=== PATIENT | female | born 2000 | race Caucasian/White ===

== ENCOUNTER 2021-02-13 21:06 | Emergency (ER) | payer OTHER | END 2021-02-14 02:10 | disposition left against medical advice (07) | LOC: ER1 21:06 | DX: Z53.21 Procedure and treatment not carried out due to patient leaving prior to being seen by health care provider (principal) ==

== ENCOUNTER 2021-04-07 09:18 | Emergency (ER) | payer OTHER ==
[2021-04-07 09:56] LABS: RED BLOOD COUNT 4.22 M/UL (4.00-5.10); WHITE BLOOD COUNT 9.8 K/UL (4.5-11.0)
[2021-04-07 10:18] LABS: BUN/CREATININE RATIO 17 (0-10)
[2021-04-07] MEDS ORDERED: OMNICEF 300 MG300 MG PO (10:19)
== END 2021-04-07 10:35 | disposition home or self-care (01) ==
LOC: ER1 09:18
PROVIDERS: Physician Assistant
DX: O23.41 Unspecified infection of urinary tract in pregnancy, first trimester (principal); Z3A.09 9 weeks gestation of pregnancy
CPT/HCPCS: 80053; 81001; 83690; 84702; 85025; 87086; 99284

== ENCOUNTER 2021-10-28 21:12 | Inpatient (IN) | payer OTHER ==
[~2021-10-28] VITALS: Ht 154.9 cm; Wt 89.8 kg
[~2021-10-28 21:12] MED LIST: OMNICEF 300 MG300 MG PO
[2021-10-28 23:06] LABS: HEMOGLOBIN 11.6 gm/dl (12.3-15.3); RED BLOOD COUNT 4.03 M/UL (4.00-5.10); WHITE BLOOD COUNT 15.1 K/UL (4.5-11.0)
[2021-10-29] MEDS ORDERED: PRENATAL VITAM1 EAC3 PO (03:53)
[2021-10-29] MEDS ORDERED: COLACE 100MG C100 MG PO (21:42)
[2021-10-29] MEDS ORDERED: IBUPROFEN600 MG PO (21:42)
[2021-10-29] MEDS ORDERED: FERROUS SULFAT325 MG PO (21:42)
[2021-10-30 08:12] LABS: HEMOGLOBIN 10.3 gm/dl (12.3-15.3)
== END 2021-10-31 14:38 | disposition home or self-care (01) | DRG 807 ==
LOC: GENOP 21:12 → OB 23:26
PROVIDERS: Obstetrics & Gynecology; ADMIT Obstetrics & Gynecology
PROC: 0HQ9XZZ Repair Perineum Skin, External Approach (ICD-10-PCS; principal; 2021-10-29)
PROC: 10E0XZZ Delivery of Products of Conception, External Approach (ICD-10-PCS; 2021-10-29)
PROC: 3E0234Z Introduction of Serum, Toxoid and Vaccine into Muscle, Percutaneous Approach (ICD-10-PCS; 2021-10-29)
DX: O24.420 Gestational diabetes mellitus in childbirth, diet controlled (principal); Z37.0 Single live birth; Z20.822 Contact with and (suspected) exposure to COVID-19; Z3A.39 39 weeks gestation of pregnancy; O70.0 First degree perineal laceration during delivery; Z23 Encounter for immunization
CPT/HCPCS: 82962; 83518; 85014; 85018; 85025; 90715; J2405; J2590; J7120; U0002